=== PATIENT | male | born 1975 | race Caucasian/White ===

== ENCOUNTER 2025-04-11 13:28 | Emergency (ER) | payer BC, SELFPAY ==
--- OUTSIDE RECORDS SUMMARY | 2025-04-11 13:32 | XMS_ITS | Clinical Summary ---
Author Organization [facility] Address [address] [place] [id number] Care Team Providers Care Quality Specialist Name Role Phone Jose Collier MD Primary Care Provider [phone] Allergies No known active allergies Medications loratadine (CLARITIN) 10 mg tabletIndicatio ns:Seasonal allergic rhinitis, unspecified allergic rhinitis trigger Take 1 tablet by mouth once daily. 0 7 Active Lactobacillus acidophilus (PROBIOTIC) 10 billion cell cap Take 1 capsule by mouth once daily. 0 8 Active multivitamin (MULTIPLE VITAMINS) tablet Take 1 tablet by mouth once daily. 0 8 Active fluticasone (50 mcg per actuation) nasal solution (FLONASE) Inhale 2 Sprays into both nostrils once daily. 1 Bottle 9 Active permethrin (ELIMITE) 5 % creamIndication s:Rash Apply to entire body from the neck down and leave on for 8 hours. Then rinse and repeat this in one week. 60 g 1 5 03/30/20 25 Discontinu ed(*Patien t states no longer taking) hydrOXYzine HCL (ATARAX) 25 mg tabletIndicatio ns:Rash Take 1 Tablet (25 mg) by mouth every 8 hours if needed for Itching. 30 Tablet 1 5 03/30/20 25 Discontinu ed(*Patien t states no longer taking) triamcinolone 0.1 % ointmentIndicat ions:Rash Apply topically to affected area(s) 3 times daily if needed (itching/rash ). Do not apply to the FACE, GROIN, ARMPITS, ANUS. Do not use more than 7 days in a row. 30 g 1 03/30/20 25 Discontinu ed(*Patien t states no longer taking) Active Problems Problem Noted Date Diagnosed Date Elevated blood pressure read ing without diagnosis of hypertension 02/25/2025 Bradycardia 02/25/2025 Encounters Date Type Department Care Team Description 04/10/2025 8:20 AM CDT Office Visit [facility] [address] [facility] [address] [place] [address] Mitra Bhardwaj MD Derm Problem 04/10/2025 Travel 04/06/2025 Travel 03/30/2025 7:50 AM CDT Office Visit [facility] [address] [place] [address] Jose Collier MD Physical (Age: 50/Concerns: NONE); Immunization/Injecti on 03/30/2025 Travel 03/25/2025 Travel 03/22/2025 9:00 AM CDT Nurse/Clinic Staff Only [address] [phone] Blood Pressure 03/22/2025 Travel 02/24/2025 Orders Only [facility] [address] [place] [phone] Luís Holman PA 1 scan: (1-Ord) 02/04/2025 02/23/2025 7:25 AM CDT Office Visit [facility] [address] [place] [address] Jose Collier MD ER Follow up (01/28/2025 [facility]itis [facility] Ab[facility]en and Amrit Cardia ) 02/22/2025 Travel 02/04/2025 3:30 PM CDT Office Visit [facility] [address] [place] [phone] Luís Holman PA Derm Problem 02/04/2025 Travel 01/28/2025 1:46 PM CDT - 01/28/2025 4:13 PM CDT Emergency [facility] [address] [place] [address] Jillian Chambers PA Cellulitis of abdominal wall (Primary Dx); Elevated blood pressure reading; Rash, vesicular Discharge Disposition: Home Self Care 01/28/2025 11:05 AM CDT Office Visit [facility] [address] [place] [phone] Shante Burgos, THAIS Derm Problem (thinks he got into poison oak, all over chest, arms, and itchy, having hot cold spells, sweats, chills. x 1 week. ) 01/28/2025 Travel from Last 3 Months Immunizations Immunization Administration Dates Next Due AMB Influenza, IIV4 PF (=>6 mos Flulaval,Fluzone Fluarix)(Flu Clinic Only) 04/05/2019 INFLUENZA, IIV3 PF (AGE >= 6 MO) 03/30/2025 Influenza Virus, Unspecified 06/19/2016, 05/13/2015,04/05/2014,04/13,04/14/2012,04/10/2011,04/24/2010 Influenza, CCIIV3 (Age >=6 M O) (Egg Free) 04/07/2024 Influenza, IIV4 04/08/2021,,06/16/2018,03/26 Influenza, Injectable, Mdck, Quadrivalent, W/preservative 04/06/2023,04/07/2022 Td (Age >=7 Years) 01/27/2007 Tdap 03/30/2025,12/13/2013,12/28/2006 03/30/2035 Family History Medical History Relation Name Comments Cancer-prostate Father Diverticulitis Father Hypertension Father Cancer-prostate Maternal Grandfather Hypertension Mother Relation Name Status Comments Father Alive Maternal Grandfather Mother Social History Tobacco Use Types Packs/Day Years Used Date Smoking Tobacco: Former Cigarettes 0.5 20 0 01/05/1997 - 04/29/2007 Smokeless Tobacco: Former Chew Quit: 06/29/2006 Tobacco Cessation:Counseling Given: Not Answered Alcohol Use Standard Drinks/Week Comments Yes 2 (1 standard drink = 0.6 oz pur e alcohol) PHQ-2 Answer Date Recorded PHQ-2 TOTAL SCORE 0 02/23/2025 Alcohol Use Answer Date Recorded How often do you have a drink containing alcohol ? 3 03/30/2025 How many drinks containing a lcohol do you have on a typical day when you are drinking? 0 03/30/2025 How often do you have five or more drinks on one occasion? 0 03/30/2025 Interpersonal Safety Answer Date Record ed Are you being hit, kicked, p ushed or yelled at (see row info)? 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 Not on file Not on file Not on file Obstetrics History Last Filed Vital Signs Vital Sign Reading Time Taken Comments Blood Pressure 116/73 03/30/2025 7:58 AM CDT Pulse 44 03/30/2025 7:50 AM CDT Temperature 36.3 C (97.4 F) 02/04/2025 3:35 PM CDT Respiratory Rate 18 02/04/2025 3:35 PM CDT Oxygen Saturation 100% 03/30/2025 7:50 AM CDT Inhaled Oxygen Concentration - - Weight 115.5 kg (254 lb 11.2 oz) 03/30/2025 7:50 AM CDT Height 179.9 cm (5' 10.83) 03/30/2025 7:50 AM C DT Body Mass Index 35.7 03/30/2025 7:50 AM CDT Plan of Treatment Health Maintenance Due Date Last Done Comments HIV for age 15-65 1991 Hepatitis C screening for ag e 18-79 1994 Hepatitis B series for 19+ ( 1 of 3 - 19+ 3-dose series) 1995 Pneumococcal series for age 6-49 (1 of 2 - PCV) 1995 Colonoscopy through age 75 2021 COVID-19 vaccine series ( season) 2025 Depression screening for age 12+ 02/23/2026 02/23/2025, 12/08/2018, 03/26/2017 BMI (ht and wt on same day) for age 18+ 03/30/2026 03/30/2025, 02/23/2025, 12/08/2018, Additional history exists Lipids for age 45-75 03/30/2030 03/30/2025, 03/26/20 17 Tetanus booster 03/30/2035 03/30/2025, 11/27, 01/27/2007, Additional history exists RSV vaccine for adults or (1 - 1-dose 75+ series) 2051 Influenza Vaccine Completed 03/30/2025, , 04/06/2023, Additional history exists Procedures Procedure Name Priority Date/Time Associated Diagnosis Comments HEMOGLOBIN A1C Routine 03/30/2025 8:53 AM CDT Screening for diabetes mellitus PSA TOTAL Routine 03/30/2025 8:53 AM CDT Prostate cancer screening Family history of prostate cancer GLUCOSE, FASTING Routine 03/30/2025 8:53 AM CDT Screening for diabetes mellitus LIPID PANEL W REFLEX MEASURED LDL Routine 03/30/2025 8:53 AM CDT Screening cholesterol level EKG 12 LEAD Routine 02/04/2025 12:00 AM CDT Bradycardia LACTATE VENOUS Patient wait 01/28/2025 12:55 PM CDT Chills Rash Leukocytosis, unspecified type AEROBIC BACTERIAL CULTURE, STAIN Routine 01/28/2025 12:36 PM CDT Rash CBC WITH AUTO DIFFERENTIAL STAT 01/28/2025 12:33 PM CDT Chills Rash BASIC METABOLIC PANEL STAT 01/28/2025 12:33 PM CDT Chills Rash CBC WITH AUTO DIFFERENTIAL STAT 01/28/2025 12:33 PM CDT Chills Rash from Last 3 Months Results * HEMOGLOBIN A1C (03/30/2025 8:53 AM CDT) HEMOGLOBIN A1C 5.6 <5.7 % 03/31/2025 4:03 AM CDT [facility] Comment: For the purpose of screening for the presence of diabetes: <5.7% Consistent with the absence of diabetes 5.7-6.4% Consistent with increased risk for diabetes (prediabetes) > or =6.5% Consistent with diabetes This assay result is consistent with a decreased risk of diabetes. Currently, no consensus exists regarding use of hemoglobin A1c for diagnosis of diabetes in children. According to [place] Diabetes Association (ADA) guidelines, hemoglobin A1c <7.0% represents optimal control in non- diabetic patients. Different metrics may apply to specific patient populations. Standards of Medical Care in Diabetes(ADA). Blood BLOOD SPECIMEN / Unknown [facility] / Unknown 03/30/2025 8:53 AM CDT 03/30/2025 8:53 AM CDT us Jose Collier MD CHEMISTRY Final Res ult [facility] [address] [phone], * (ABNORMAL) LIPID PANEL W REFLEX MEASURED LDL (03/30/2025 8:53 AM CDT) CHOLESTEROL, TOTAL 154 <200 mg/dL 03/31/2025 5:21 AM CDT [facility] TRIGLYCERIDES 173(H) <150 mg/dL 03/31/2025 5:21 AM CDT [facility] HDL CHOLESTEROL 37(L) > OR = 40 mg/dL 03/31/2025 5:21 AM CDT [facility] NON HDL CHOLESTEROL 117 <130 mg/dL (calc) 03/31/2025 5:21 AM CDT [facility] Comment: For patients with diabetes plus 1 major ASCVD risk factor, treating to a non-HDL-C goal of <100 mg/dL (LDL-C of <70 mg/dL) is considered a therapeutic option. CHOL/HDLC RATIO 4.2 <5.0 (calc) 03/31/2025 5:21 AM CDT [facility] LDL-CHOLESTEROL 90 mg/dL (calc) 03/31/2025 5:21 AM CDT [facility] Comment: Reference range: <100 Desirable range <100 mg/dL for primary prevention; <70 mg/dL for patients with CHD or diabetic patients with > or = 2 CHD risk factors. LDL-C is now calculated using the Wilbur calculation, which is a validated novel method providing better accuracy than the Friedewald equation in the estimation of LDL-C. Bernardino BUCKNER et al. WANDY. 2013;310(27): 5656-0095 (http://education.Spotlime/faq/PJI943) Blood BLOOD SPECIMEN / Unknown [facility] / Unknown 03/30/2025 8:53 AM CDT 03/30/2025 8:53 AM CDT Jose Collier MD CHEMISTRY Final Res ult Performing Organization Address [facility]/ZIP Co de Phone Number [facility] [address] [phone], * GLUCOSE, FASTING (03/30/2025 8:53 AM CDT) GLUCOSE 95 65 - 99 mg/dL 03/31/2025 5:21 AM CDT [facility] Comment: Fasting reference interval Blood BLOOD SPECIMEN / Unknown [facility] / Unknown 03/30/2025 8:53 AM CDT 03/30/2025 8:53 AM CDT us Jose Collier MD CHEMISTRY Final Res ult Performing Organization Address [facility]/ZIP Co de Phone Number [facility] [address] [address], [place] [phone] * PSA TOTAL (03/30/2025 8:53 AM CDT) PSA, TOTAL 1.39 < OR = 4.00 ng/mL 03/31/2025 7:40 AM CDT [facility] Comment: The total PSA value from this assay system is standardized against the WHO standard. The test result will be approximately 20% lower when compared to the equimolar-standardized total PSA (Chelle [place]). Comparison of serial PSA results should be interpreted with this fact in mind. This test was performed using the Siemens chemiluminescent method. Values obtained from different assay methods cannot be used interchangeably. PSA levels, regardless of value, should not be interpreted as absolute evidence of the presence or absence of disease. Blood BLOOD SPECIMEN / Unknown [facility] / Unknown 03/30/2025 8:53 AM CDT 03/30/2025 8:53 AM CDT Jose Collier MD CHEMISTRY Final Res ult Performing Organization Address [facility]/ZIP Co de Phone Number [facility] [address] [phone], * EKG 12 LEAD (02/04/2025 12:00 AM CDT) Luís Holman PA EKG ORD Final Re sult * (ABNORMAL) LACTATE VENOUS (01/28/2025 12:55 PM CDT) LACTATE,VENOUS 2.1(HH) 0.5 - 2.0 mmol/L 01/28/2025 1:31 PM CDT [facility] Blood BLOOD SPECIMEN / Unknown [facility] / Unknown 01/28/2025 12:55 PM CDT 01/28/2025 12:55 PM CDT Shante Burgos NP CHEMISTRY Final Result Performing Organization Address City/[facility]/ZIP Co de Phone Number [facility] [address] [place] [address] * (ABNORMAL) AEROBIC BACTERIAL CULTURE, STAIN (01/28/2025 12:36 PM CDT) CULTURE RESULT(A) 01/30/2025 8:[address] [facility] CULTURE 4+ Staphylococcus aureus 01/30/2025 8:[address] [facility] GRAM STAIN No PMNs 01/30/2025 8:31 [address] CD[address] [facility] GRAM STAIN 1+ RBCs 01/30/2025 8:31 AM CDT [facility] GRAM STAIN No Epithelial cells 01/30/2025 8:31 [address] CD[address] [facility] GRAM STAIN 2+ Gram Positive Cocci 01/30/2025 8:31 AM CDT [facility] Other (Other) Non-Blood / Unknown 01/28/2025 12:36 PM CDT 01/28/2025 12:37 PM CDT Narrative Organism Antibiotic Method Susceptibility Staphylococcus aureus OXACILLIN <=0.25: S Comment:Oxacillin hall sceptible should not be interpreted as penicillin or amoxicillin susceptible. Staphylococcus aureus CLINDAMYCIN 0.25: S Staphylococcus aureus DOXYCYCLINE <=0.5: S Staphylococcus aureus CEFAZOLIN S Staphylococcus aureus TRIMETHOPRIM/SULF <=0.5/9.5: S us Shante Burgos NP MICROBIOLOGY Final Result [facility] [address] [place] [address], * (ABNORMAL) CBC WITH AUTO DIFFERENTIAL (01/28/2025 12:33 PM CDT) WHITE BLOOD COUNT 19.3(H) 4.5 - 11.0 thou/cu mm 01/28/2025 12:41 PM CDT [facility] RED BLOOD COUNT 5.50 4.30 - 5.90 mil/cu mm 01/28/2025 12:41 PM CDT [facility] HEMOGLOBIN 15.1 13.5 - 17.5 g/dL 01/28/2025 12:41 PM CDT [facility] HEMATOCRIT 45.6 37.0 - 53.0 % 01/28/2025 12:41 PM CDT [facility] MCV 83 80 - 100 fL 01/28/2025 12:41 PM [facility] MCH 27.5 26.0 - 34.0 pg 01/28/2025 12:41 PM [facility] MCHC 33.1 32.0 - 36.0 g/dL 01/28/2025 12:41 PM [facility] RDW 14.2 11.5 - 15.5 % 01/28/2025 12:41 PM [facility] PLATELET COUNT 310 140 - 440 thou/cu mm 01/28/2025 12:41 PM [facility] MPV 8.8 6.5 - 11.0 fL 01/28/2025 12:41 PM [facility] % NEUT 78.3 % 01/28/2025 12:41 PM [facility] % LYMPH 13.4 % 01/28/2025 12:41 PM [facility] % MONO 6.4 % 01/28/2025 12:41 PM [facility] % EOS 1.7 % 01/28/2025 12:41 PM [facility] % BASO 0.2 % 01/28/2025 12:41 PM [facility] ABSOLUTE NEUTROPHILS 15.1(H) 1.7 - 7.0 thou/cu mm 01/28/2025 12:41 PM [facility] ABSOLUTE LYMPHOCYTES 2.6 0.9 - 2.9 thou/cu mm 01/28/2025 12:41 PM [facility] ABSOLUTE MONOCYTES 1.2(H) <0.9 thou/cu mm 01/28/2025 12:41 PM [facility] ABSOLUTE EOSINOPHILS 0.3 <0.5 thou/cu mm 01/28/2025 12:41 PM [facility] ABSOLUTE BASOPHILS 0.0 <0.3 thou/cu mm 01/28/2025 12:41 PM [facility] Blood BLOOD SPECIMEN / Unknown [facility] / Unknown 01/28/2025 12:33 PM CDT 01/28/2025 12:33 PM CDT us Shante Burgos NP HEMATOLOGY Final Result [facility] [address] [place] [address] * (ABNORMAL) BASIC METABOLIC PANEL (01/28/2025 12:33 PM CDT) SODIUM 138 136 - 145 mmol/L 01/28/2025 12:57 PM [facility] POTASSIUM 3.9 3.5 - 5.1 mmol/L 01/28/2025 12:57 PM [facility] CHLORIDE 102 98 - 107 mmol/L 01/28/2025 12:57 PM [facility] CO2,TOTAL 25 22 - 29 mmol/L 01/28/2025 12:57 PM [facility] ANION GAP 11 5 - 18 01/28/2025 12:57 PM [facility] GLUCOSE 111(H) 70 - 99 mg/dL 01/28/2025 12:57 PM [facility] CALCIUM 9.4 8.8 - 10.4 mg/dL 01/28/2025 12:57 PM [facility] Comment: Reference ranges for this test were updated on 05/03/2024 to reflect our healthy population more accurately. Reference range changes are not retroactively applied to results, but previous results using the same methodology can be interpreted in the context of the new reference range. BUN 12 6 - 20 mg/dL 01/28/2025 12:57 PM [facility] CREATININE 0.89 0.70 - 1.20 mg/dL 01/28/2025 12:57 PM [facility] BUN/CREAT RATIO 13 10 - 20 12:57 PM [facility] eGFR >90 >90 mL/min/1. 73m2 01/28/2025 12:57 PM [facility] Comment:As of 2021, eG FR is calculated by the CKD-EPI creatinine equation without race adjustment. eGFR can be influenced by muscle mass, exercise, and diet. The reported eGFR is an estimation only and is only applicable if the renal function is stable. Blood BLOOD SPECIMEN / Unknown [facility] / Unknown 01/28/2025 12:33 PM CDT 01/28/2025 12:33 PM CDT us Shante Burgos [address] JUDGE CHEMISTRY Final Result [facility] [address] [place] [address] from Last 3 Months Insurance [place] Care Teams Quality Specialist Relationship Specialty Start Date End Date Jose Collier [place] [address] [place] [address] PCP - General Family Practice 02/23/25
[2025-04-11 14:13] VITALS: BP 155/88; PULSE 49; RESP 16; TEMP 36.7; O2SAT 98; BMI 34.0
[2025-04-11 14:28] LABS: Appearance Urine Clear (Clear)
--- NOTE | 2025-04-11 14:30 | ED.ABDPAIN ---
HPI - Abdominal Pain General Time Seen by Provider: 14:30 Date Seen: 04/11/25 Chief Complaint: Abdominal Pain Stated Complaint: R side pain Time Seen by Provider: 04/11/25 13:58 Source: patient and RN notes reviewed Mode of arrival: ambulatory Limitations: no limitations History of Present Illness HPI narrative: This 50-year-old male is coming in with complaint of right-sided abdominal pain. Feels it in his right side of his abdomen somewhat radiates around in the flank area. Earlier today he felt fine. But this started hours ago and seems to be maybe worsening some. Going over bumps in the car hurt, he feels like he can still walk fine. Does feel like if he can stretch out it feels better and his abdomen. He has noted no fevers chills. He has had some waves of nausea and diminished appetite. Had a little trail mix around lunch time but nothing else. He has had no vomiting, no urinary changes. Had normal bowel movement this morning. He has had no prior abdominal surgeries. He just is getting scheduled to get a colonoscopy, has not had 1 before. Believes his dad has had gallbladder problems, maybe diverticulitis and believes his dad may have his appendix out. It is not aware of any family history of kidney stones. Related Data Allergies Allergy/AdvReac Type Severity Reaction Status Date / Time No Known Drug Allergies Allergy Verified 04/11/25 14:17 Review of Systems Status of ROS Reports: 6 or more systems reviewed and unremarkable except as noted in History and below PFSH PFSH Social History Smoking Status: Never smoker How often do you have a drink containing alcohol: monthly or less AUDIT-C Alcohol total score: 1 Non-prescribed substance use: denies use service: No Exam Const: Vital Signs, click to edit/add: Vital Signs - 24 hr 04/11/25 14:13 04/11/25 17:42 Temperature 98.0 F Pulse Rate [Left P ulse Oximeter] 49 L 47 L Respiratory Rate 16 18 Blood Pressure [Ri ght Upper Arm] 155/88 H 135/83 Pulse Oximetry 98 97 Oxygen Delivery Me thod Room Air This 50-year-old male his sing exam room for coming is alert, interactive, no apparent distress. Sclerae are clear, face atraumatic. Neck is thick. Lungs are clear come good air entry, no wheezing or crackles, no tachypnea, no accessory muscle use. CV regular rate and rhythm, no murmur, normal S1-S2. Abdomen is mildly bees but soft, nontender, no rebound or guarding, no organomegaly noted, normal bowel sounds. I really cannot reproduce his abdominal pain. Documenting provider has reviewed patient's vital signs: yes Course Course ED Course: Patient is declining anything for pain or nausea at this time. Will place an IV and get full complement of labs. Given that I cannot reproduce his pain, may potentially be more of a urinary system issue such as a kidney stone. It is possible that he could have something like early appendicitis or even diverticulitis which they brought up. We did discuss that most diverticulitis is usually found on the other side of the colon but it is possible to find it in the proximal colon. We need to consider CT imaging but would wait a may CBC and urinalysis at this time. This will help guide me in whether or not I would choose IV contrast. Reevaluation(s) Time of Reevaluation #1: 14:57 Reevaluation #1: Patient's urine with these not showing any concerning change. Will do a CT with IV contrast at this point. Time of Reevaluation #2: 15:26 Reevaluation #2: Updated patient that I do see a large stone obstructing the right system. He states getting up and moving for the CT has really escalated is pain. Reviewed with him that I had already ordered Toradol and was going to let him know this. He does definitely seem to want at now and it is ordered. Time of Reevaluation #3: 16:44 Reevaluation #3: Have reviewed CT with patient and his . He has a 10 mm stone. They would prefer [facility] or that system, we will start there and see if we may transfer. Additional Reevaluation(s): 8:31 p.m.: Still awaiting bed placement, checked on patient and he is not having any significant pain at this time. Will await the bed placement at [facility]. Consultations Consultation #1: Have spoken with hospitalist Dr. Chamorro from [facility] and reviewed the case. He agrees to accept patient. There may be up to an 8 hour bed delay. Will update patient. Time: 17:09 Vital Signs Vital signs: Initial Vital Signs Temperature 98.0 F 04/11/25 14:13 Temperature Source Oral 04/11/25 14:13 Pulse Rate 49 L 04/11/25 14:13 Respiratory Rate 16 04/11/25 14:13 Blood Pressure 155/88 H 04/11/25 14:13 Blood Pressure Mean 110 H 04/11/25 14:13 Blood Pressure Position Sitting 04/11/25 14:13 Pulse Oximetry 98 04/11/25 14:13 Vital Signs Temperature 98.0 F 04/11/25 14:13 Pulse Rate 49 L 04/11/25 14:13 Respiratory Rate 16 04/11/25 14:13 Blood Pressure 155/88 H 04/11/25 14:13 Pulse Oximetry 98 04/11/25 14:13 Temperature 98.8 F 04/11/25 21:09 Pulse Rate 49 L 04/11/25 21:09 Respiratory Rate 18 04/11/25 21:09 Blood Pressure 134/79 04/11/25 21:09 Pulse Oximetry 97 04/11/25 21:09 Oxygen Delivery Method Room Air 04/11/25 21:09 Medications Administered Medications: Discontinued Medications Generic Name Dose Route Start Last Admin Trade Name Freq PRN Reason Stop Dose Admin Ketorolac Tromethamine 15 mg 04/11/25 15:26 04/11/25 15:35 Ketorolac 15 Mg/Ml Inj IVP 04/11/25 15:27 15 mg ONCE ONE Administration Oxycodone HCl 5 mg 04/11/25 21:09 04/11/25 21:18 Oxycodone 5 Mg Tablet PO 04/11/25 21:10 Not Given ONCE ONE MDM - Abdominal Pain Lab Data Attestation: I reviewed the patient's lab results. Labs: Lab Results 04/11/25 04/11/25 Range/Units 14:19 14:55 WBC 11.61 H (4.50-11.00) K/uL RBC 5.15 (4.30-5.90) m/uL Hgb 14.1 (13.5-17.5) gm/dL Hct 43.7 (37.0-53.0) % MCV 85 (80-100) fL MCH 27 (26-34) pg MCHC 32 (32-36) gm/dL RDW Coeff of Lara 13.3 (11.5-15.5) % Plt Count 304 (140-440) K/uL Neut % (Auto) 87.7 H (42.0-72.0) % Lymph % (Auto) 7.5 L (20-44) % [place] % (Auto) 3.7 (0.0-11.0) % Eos % (Auto) 0.0 (0.0-7.0) % Baso % (Auto) 0.1 (0.0-3.0) % Neut # (Auto) 10.20 H (1.7-7.0) K/uL Lymph # (Auto) 0.90 (0.90-2.90) K/uL [place] # (Auto) 0.40 (0.00-0.90) K/UL Eos # (Auto) 0.00 (0.00-0.50) K/uL Baso # (Auto) 0.00 (0.00-0.30) K/uL Abs Immat Gran (auto) 0.10 (0.00-0.30) K/uL Imm/Tot Granulo (auto) 1.0 % Sodium 135 (135-149) mmol/L Potassium 4.3 (3.6-5.1) mmol/L Chloride 99 (96-114) mmol/L Carbon Dioxide 25 (20-32) mmol/L Anion Gap 11 (7-15) mEq/L BUN 15 (5-24) mg/dL Creatinine 1.0 (0.5-1.5) mg/dL Estimated Creat Clear 95.17 Estimated GFR 92 ml/min Glucose 123 H (60-115) mg/dL Lactate 1.3 (0.5-1.9) mmol/L Calcium 9.7 (8.4-10.6) mg/dL Total Bilirubin 0.5 (0.1-1.5) mg/dL AST 25 (12-35) U/L ALT 21 (4-50) U/L Alkaline Phosphatase 87 (40-150) U/L C-Reactive Protein 0.8 (0.5-1.0) mg/dL Total Protein 8.1 (6.0-8.3) g/dL Albumin 4.8 (3.3-5.0) g/dL Lipase 38 (23-300) U/L Urine Color Yellow (Yellow) Urine Appearance Clear (Clear) Urine pH 7.0 (5.0-8.5) Ur Specific [place] 1.025 (1.000-1.030) Urine Protein Trace A (Negative) Urine Glucose (UA) Negative (Negative) Urine Ketones 2+ A (Negative) Urine Blood Negative (Negative) Urine Nitrite Negative (Negative) Urine Bilirubin Negative (Negative) Urine Urobilinogen 0.2 (0.2-1.0) Ur Leukocyte Esterase Negative (Negative) Urine RBC 0-2 (0-2) Urine WBC 0-2 (0-5) Urine WBC Clumps None (None) Ur Squamous Epith Cells None (None-Few) Urine Bacteria None (None) Imaging Data CT scan - abdomen: Attestation: I have reviewed the pertinent imaging results. My impression: Did visualize patient's CT, can see large stone in the proximal right urinary system, Radiologist's impression: Patient: CLARISA CIFUENTES Facility:?[facility] Patient ID:?[id number] Site Patient ID:?[id number]. Site :?[id number] Study:?CT-Abdomen/Pelvis W/ 120CC [id number] 3:15:28 PM Ordering Physician:?Yojana Judge Final Report: INDICATION: RIGHT SIDED ABD PAIN, NAUSEA. (Sic) COMPARISON: None available. TECHNIQUE: CT of the abdomen and pelvis with 120 cc of Isovue 370 intravenous contrast. Please note that all CT scans at this facility use dose modulation, iterative reconstruction, and/or weight-based dosing when appropriate to reduce radiation dose to as low as reasonably achievable. FINDINGS: ABDOMEN Liver: Normal contour and attenuation. No significant focal lesion. Incidental too small to characterize round uniform hyperdensity at the border zone between segments 5 and 8, statistically likely to represent a cyst, for which no further workup or ongoing imaging surveillance as indicated in the absence of an established history of malignancy and without significant underlying liver disease (series 2; image 38). There is a second similar finding in the inferior right hepatic lobe (2; 55). No intrahepatic biliary ductal dilatation. Patent portal veins. Patent hepatic veins. Gallbladder: Normal size. No pericholecystic inflammatory changes. Normal common duct caliber. Pancreas: Normal contour and attenuation. No peripancreatic inflammatory changes. No significant focal lesion. Normal main duct caliber. Spleen: Not enlarged. No significant focal lesion. Incidental note is made of multiple subcentimeter splenic parenchymal calcifications consistent with calcified granulomas. Patent splenic artery and vein. Adrenal Glands: Symmetrical adrenal glands. No significant focal lesion. Kidneys: Normal bilateral renal attenuation. No significant focal lesion. 10 mm (coronal series 4; image 63) obstructing proximal right ureteral stone associated with signs of obstructive uropathy including upstream dilatation of the right upper urinary tract, a delayed right nephrogram and right perinephric stranding. Incidental note is made of a punctate parenchymal calcification in the interpolar right kidney (2; 64). Small nonobstructing left upper pole nephrolith (2; 51). Gastrointestinal tract: Normal caliber, attenuation and wall thickness of the gastrointestinal tract. Sigmoid diverticulosis without associated inflammatory changes. Normal small bowel mesentery. Normal appendix. Vascular: Abdominal aorta and its major proximal branches including the celiac, superior mesenteric, inferior mesenteric, renal, and bilateral common iliac arteries are patent. Patent superior mesenteric vein. Peritoneal Cavity/Retroperitoneum: No ascites. No adenopathy. PELVIS No bladder lesion is identified. No significant incidental findings related to the prostate or seminal vesicles. No significant ascites. No adenopathy. SKELETON AND BODY WALL No acute or significant incidental findings. Incidental small fat containing indirect right inguinal hernia. Differential diagnostic considerations include an inguinal canal lipomas/extrusion of extraperitoneal fat. LOWER THORAX Incidental 4 mm right lower lobe nodule (series 3; image 1), partially included in the [id number]. No routine imaging surveillance is indicated for such findings in the absence of an established history of malignancy without clinical risk factors for lung cancer such as a smoking history. If the latter then Fleischner society guidelines suggest an optional 12 month follow-up chest CT which is recommended. There is otherwise made of lingular and left lower lobe pleural-based linear opacities consistent with nonspecific fibrosis and/or subsegmental atelectasis, not considered to be clinically significant. IMPRESSION: 1. 10 mm (coronal series 4; image 63) obstructing proximal right ureteral stone associated with signs of obstructive uropathy including upstream dilatation of the right upper urinary tract, a delayed right nephrogram and right perinephric stranding. 2. Incidental findings described above including a 4 mm right lower lobe nodule. No routine imaging surveillance is indicated for such findings in the absence of an established history of malignancy without clinical risk factors for lung cancer such as a smoking history. If the latter then Fleischner society guidelines suggest an optional 12 month follow-up chest CT which is recommended. Please note that all CT scans at this facility use dose modulation, iterative reconstruction, and/or weight-based dosing when appropriate to reduce radiation dose to as low as reasonably achievable. Dictated by Gilmar Mullen MD @ 04/11/2025 3:40:49 PM (Electronic Signature) Discharge Plan Discharge Clinical Impression: Urinary tract obstruction by kidney stone Patient Disposition: Xfer [facility] Discharge Location: [facility] Stand Alone Forms: MyHealth Info Instructions
--- NOTE | 2025-04-11 14:50 | CRLHL7_ITS ---
For Patients: As a result of the 21st Century Cures Act, medical imaging exams and procedure reports are released immediately into your electronic medical record. You may view this report before your referring provider. If you have questions, please contact your health care provider. INDICATION: RIGHT SIDED ABD PAIN, NAUSEA. (Sic) COMPARISON: None available. TECHNIQUE: CT of the abdomen and pelvis with 120 cc of Isovue 370 intravenous contrast. Please note that all CT scans at this facility use dose modulation, iterative reconstruction, and/or weight-based dosing when appropriate to reduce radiation dose to as low as reasonably achievable. FINDINGS: ABDOMEN Liver: Normal contour and attenuation. No significant focal lesion. Incidental too small to characterize round uniform hyperdensity at the border zone between segments 5 and 8, statistically likely to represent a cyst, for which no further workup or ongoing imaging surveillance as indicated in the absence of an established history of malignancy and without significant underlying liver disease (series 2; image 38). There is a second similar finding in the inferior right hepatic lobe (2; 55). No intrahepatic biliary ductal dilatation. Patent portal veins. Patent hepatic veins. Gallbladder: Normal size. No pericholecystic inflammatory changes. Normal common duct caliber. Pancreas: Normal contour and attenuation. No peripancreatic inflammatory changes. No significant focal lesion. Normal main duct caliber. Spleen: Not enlarged. No significant focal lesion. Incidental note is made of multiple subcentimeter splenic parenchymal calcifications consistent with calcified granulomas. Patent splenic artery and vein. Adrenal Glands: Symmetrical adrenal glands. No significant focal lesion. Kidneys: Normal bilateral renal attenuation. No significant focal lesion. 10 mm (coronal series 4; image 63) obstructing proximal right ureteral stone associated with signs of obstructive uropathy including upstream dilatation of the right upper urinary tract, a delayed right nephrogram and right perinephric stranding. Incidental note is made of a punctate parenchymal calcification in the interpolar right kidney (2; 64). Small nonobstructing left upper pole nephrolith (2; 51). Gastrointestinal tract: Normal caliber, attenuation and wall thickness of the gastrointestinal tract. Sigmoid diverticulosis without associated inflammatory changes. Normal small bowel mesentery. Normal appendix. Vascular: Abdominal aorta and its major proximal branches including the celiac, superior mesenteric, inferior mesenteric, renal, and bilateral common iliac arteries are patent. Patent superior mesenteric vein. Peritoneal Cavity/Retroperitoneum: No ascites. No adenopathy. PELVIS No bladder lesion is identified. No significant incidental findings related to the prostate or seminal vesicles. No significant ascites. No adenopathy. SKELETON AND BODY WALL No acute or significant incidental findings. Incidental small fat containing indirect right inguinal hernia. Differential diagnostic considerations include an inguinal canal lipomas/extrusion of extraperitoneal fat. LOWER THORAX Incidental 4 mm right lower lobe nodule (series 3; image 1), partially included in the [id number]. No routine imaging surveillance is indicated for such findings in the absence of an established history of malignancy without clinical risk factors for lung cancer such as a smoking history. If the latter then Fleischner society guidelines suggest an optional 12 month follow-up chest CT which is recommended. There is otherwise made of lingular and left lower lobe pleural-based linear opacities consistent with nonspecific fibrosis and/or subsegmental atelectasis, not considered to be clinically significant. IMPRESSION: 1. 10 mm (coronal series 4; image 63) obstructing proximal right ureteral stone associated with signs of obstructive uropathy including upstream dilatation of the right upper urinary tract, a delayed right nephrogram and right perinephric stranding. 2. Incidental findings described above including a 4 mm right lower lobe nodule. No routine imaging surveillance is indicated for such findings in the absence of an established history of malignancy without clinical risk factors for lung cancer such as a smoking history. If the latter then Fleischner society guidelines suggest an optional 12 month follow-up chest CT which is recommended. Please note that all CT scans at this facility use dose modulation, iterative reconstruction, and/or weight-based dosing when appropriate to reduce radiation dose to as low as reasonably achievable. Dictated by Gilmar Mullen MD @ 04/11/2025 3:40:49 PM (Electronically Signed)
[2025-04-11 15:16] LABS: Lactate* 1.3 mmol/L (0.5-1.9)
[2025-04-11 15:41] LABS: Albumin* 4.8 g/dL (3.3-5.0); Chloride* 99 mmol/L (96-114); Potassium* 4.3 mmol/L (3.6-5.1); Sodium* 135 mmol/L (135-149)
[2025-04-11 15:44] LABS: Alanine Aminotransferase* 21 U/L (4-50); Alkaline Phosphatase* 87 U/L (40-150); Anion Gap 11 mEq/L (7-15); Aspartate Amino Transferase* 25 U/L (12-35); Bilirubin Total* 0.5 mg/dL (0.1-1.5); Blood Urea Nitrogen* 15 mg/dL (5-24); Carbon Dioxide* 25 mmol/L (20-32); Creatinine* 1.0 mg/dL (0.5-1.5); Est. Creatinine Clearance* 95.17; Estimated Glomerular Filt Rate 92 ml/min; Total Protein* 8.1 g/dL (6.0-8.3)
[2025-04-11 15:45] LABS: Calcium* 9.7 mg/dL (8.4-10.6); Glucose* 123 mg/dL (60-115)
[2025-04-11 15:46] LABS: Hematocrit* 43.7 % (37.0-53.0); Hemoglobin* 14.1 gm/dL (13.5-17.5); Immature Granulocytes Pct Auto 1.0 %; Mean Corpuscular HGB Conc 32 gm/dL (32-36); Mean Corpuscular Hemoglobin 27 pg (26-34); Mean Corpuscular Volume 85 fL (80-100); RDW Coefficient of Variation % 13.3 % (11.5-15.5); Red Blood Count* 5.15 m/uL (4.30-5.90); White Blood Count* 11.61 K/uL (4.50-11.00)
[2025-04-11 15:58] LABS: Immature Granulocytes Abs Auto 0.10 K/uL (0.00-0.30); Lymphocytes Absolute Auto 0.90 K/uL (0.90-2.90); Slide Review Reflex No
[2025-04-11 17:42] VITALS: BP 135/83; PULSE 47; RESP 18; O2SAT 97
[2025-04-11 21:09] VITALS: BP 134/79; PULSE 49; RESP 18; TEMP 37.1; O2SAT 97
== END 2025-04-11 21:19 | disposition short-term general hospital (02) ==
PROVIDERS: Emergency Provider Family Medicine; PCP Family Medicine
DX: N13.8 Other obstructive and reflux uropathy (principal); N20.0 Calculus of kidney
CPT/HCPCS: 36415; 74177; 80053; 81001; 81003; 83605; 83690; 85025; 86140; 96374; 99284; 99285; J1885; Q9967